=== PATIENT | female | born 1980 | race Caucasian/White ===

== ENCOUNTER 2020-03-19 10:15 | Observation (INO) | payer OTHER ==
[~2020-03-19] VITALS: Ht 177.8 cm; Wt 92.1 kg
== END 2020-03-19 11:50 | disposition home or self-care (01) ==
LOC: SPU 10:15
PROVIDERS: ADMIT Specialist; ATTEND Specialist
DX: Z34.83 Encounter for supervision of other normal pregnancy, third trimester (principal); Z3A.37 37 weeks gestation of pregnancy
CPT/HCPCS: G0378

== ENCOUNTER 2020-03-27 11:46 | Observation (INO) | payer OTHER, SELFPAY | END 2020-03-27 12:30 | disposition home or self-care (01) | LOC: SPU 11:46 | PROVIDERS: ADMIT Specialist; ATTEND Specialist | DX: Z03.818 Encounter for observation for suspected exposure to other biological agents ruled out (principal); O62.9 Abnormality of forces of labor, unspecified; Z3A.38 38 weeks gestation of pregnancy | CPT/HCPCS: G0378; U0003 ==

== ENCOUNTER 2020-03-28 07:44 | Inpatient (IN) | payer OTHER ==
[~2020-03-28] VITALS: Ht 177.8 cm; Wt 92.1 kg
[2020-03-28] MEDS ORDERED: LR 1,000 ML IV ONE (21:18)
[2020-03-28 21:27] VITALS: BP_SYST 123
[2020-03-28] MEDS ORDERED: TERBUTALINE SULFATE 1 MG/ML VIAL SUBCUT ONE (21:30)
[2020-03-28] MEDS ORDERED: DINOPROSTONE 10 MG SUPP VG ONE (21:30)
[2020-03-28 23:24] LABS: BASOPHILS % (AUTO) 0.4 % (0.0-2.0); EOSINOPHILS # (AUTO) 0.1 K/uL (0.0-0.4); EOSINOPHILS % (AUTO) 0.9 % (0.0-4.0); HEMATOCRIT 34.7 % (36-48); LYMPHOCYTES # (AUTO) 1.9 K/uL (1.0-5.5); LYMPHOCYTES % (AUTO) 19.2 % (20.5-51.5); MEAN CORPUSCULAR HEMOGLOBIN 33 pg (27-31); MEAN CORPUSCULAR HGB CONC 35 % (32-36); MEAN CORPUSCULAR VOLUME 95 fL (79.0-98.0); MONOCYTES # (AUTO) 0.7 K/uL (0.0-1.0); MONOCYTES % (AUTO) 6.8 % (1.7-9.3); NEUTROPHILS # (AUTO) 7.1 K/uL (1.8-7.7); NEUTROPHILS % (AUTO) 72.7 % (40.0-70.0); PLATELET COUNT (AUTO) 266 K/uL (130-430); RED BLOOD CELL COUNT(AUTO) 3.66 MIL/uL (4.2-6.2); RED CELL DISTRIBUTION WIDTH 12.2 % (9.0-15.0); WHITE BLOOD COUNT (AUTO) 9.8 K/uL (4.8-10.8)
[2020-03-28] MEDS ORDERED: MORPHINE SULFATE 10 MG/ML VIAL IVP PRN (23:45)
[2020-03-29] MEDS: LR 1,000 ML IV SCH ×4 (02:40→15:45)
[2020-03-29] MEDS ORDERED: fentaNYL CITRATE/PF 100 MCG/2 ML AMP ONE (05:03)
[2020-03-29] MEDS ORDERED: ROPIVACAINE HCL/PF 0.2% 200 ML ONE (05:04)
[2020-03-29] MEDS ORDERED: LR 500 ML IV ONE (06:07)
[2020-03-29] MEDS ORDERED: ePHEDrine sulfate 50 MG/ML VIAL IVP PRN (06:15)
[2020-03-29] MEDS ORDERED: FENT2mCg/mL-ROPIVA0.2%/NS EPID 200 ML EP SCH (06:15)
[2020-03-29] MEDS ORDERED: BUPIVACAINE /PF 0.25% 30 ML VIAL INJ ONE (08:47)
[2020-03-29] MEDS ORDERED: OXYTOCIN/0.9 % SODIUM CHLORIDE 1,000 ML IV SCH ×2 (09:00→20:10)
[2020-03-29] MEDS ORDERED: OXYTOCIN/0.9 % SODIUM CHLORIDE 1,000 ML IV ONE ×2 (09:35→20:10)
[2020-03-29] MEDS ORDERED: FENT2mCg/mL-ROPIVA0.2%/NS EPID 150 ML EP SCH (17:45)
[2020-03-29] MEDS ORDERED: METHYLERGONOVINE MALEATE 0.2 MG TABLET PO PRN (20:15)
[2020-03-29] MEDS ORDERED: OXYCODONE/ACETAMINOPHEN 5-325 TABLET PO PRN ×2 (20:15)
[2020-03-29] MEDS ORDERED: HYDROcodone/ACETAMIN 5-325 MG TAB (NORCO/ VICODIN) PO PRN (20:15)
[2020-03-29] MEDS ORDERED: ANUSOL 1 EA SUPP.RECT (PREPARATION H) RC PRN (20:15)
[2020-03-29] MEDS ORDERED: LANOLIN 7 GM OINT. TP PRN (20:15)
[2020-03-29] MEDS ORDERED: DERMOPLAST SPRAY TP PRN (20:15)
[2020-03-29] MEDS ORDERED: SENNOSIDES/DOCUSATE SODIUM 1 TAB TABLET(SENOKOT-S) PO PRN (20:15)
[2020-03-29] MEDS ORDERED: RHO(D) IMMUNE GLOBULIN/MALTOSE 1500 UNITS/1.3 ML (WINHRO) IM PRN (20:15)
[2020-03-29] MEDS ORDERED: DIPH-TET-PERTUS Vaccine 0.5 ML VIAL (ADACEL) I.M. PRN (20:15)
[2020-03-29] MEDS ORDERED: HYDROCORTISONE 0.5%, 28.35 GM TOPICAL CREAM TP PRN (20:15)
[2020-03-29] MEDS ORDERED: MEASLES,MUMPS&RUBELLA VACC/PF 12500 UNIT/0.5 ML VIAL SUBQ PRN (20:15)
[2020-03-29] MEDS ORDERED: WITCH HAZEL LEAF 1 MED.PAD MED.PAD TP PRN (20:15)
[2020-03-29] MEDS ORDERED: TEMAZEPAM 15 MG CAPSULE PO PRN (21:00)
[2020-03-29] MEDS: IBUPROFEN 600 MG TABLET PO SCH (23:21)
[2020-03-29] MEDS: DOCUSATE SODIUM 100 MG CAPSULE PO PRN (23:21)
[2020-03-30] MEDS: IBUPROFEN 600 MG TABLET PO SCH ×3 (05:43→17:47)
[2020-03-30 07:16] LABS: BASOPHILS % (AUTO) 0.4 % (0.0-2.0); EOSINOPHILS # (AUTO) 0.1 K/uL (0.0-0.4); EOSINOPHILS % (AUTO) 0.6 % (0.0-4.0); HEMATOCRIT 35.2 % (36-48); HEMOGLOBIN 11.9 g/dL (12.0-16.0); LYMPHOCYTES % (AUTO) 14.6 % (20.5-51.5); MEAN CORPUSCULAR HEMOGLOBIN 32 pg (27-31); MEAN CORPUSCULAR HGB CONC 34 % (32-36); MEAN CORPUSCULAR VOLUME 96 fL (79.0-98.0); MONOCYTES # (AUTO) 0.9 K/uL (0.0-1.0); MONOCYTES % (AUTO) 6.6 % (1.7-9.3); NEUTROPHILS # (AUTO) 10.4 K/uL (1.8-7.7); NEUTROPHILS % (AUTO) 77.8 % (40.0-70.0); PLATELET COUNT (AUTO) 278 K/uL (130-430); RED BLOOD CELL COUNT(AUTO) 3.68 MIL/uL (4.2-6.2); RED CELL DISTRIBUTION WIDTH 12.3 % (9.0-15.0)
[2020-03-30 07:39] LABS: WHITE BLOOD COUNT (AUTO) 13.4 K/uL (4.8-10.8)
[2020-03-30] MEDS ORDERED: LIDOCAINE PF 1% 30ML(POUR BTL) INJ ONE (13:53)
[2020-03-30] MEDS ORDERED: MINERAL OIL 30 ML UDC PO ONE (13:53)
[2020-03-31] MEDS: IBUPROFEN 600 MG TABLET PO SCH ×5 (00:04→18:11)
[2020-03-31] MEDS: DOCUSATE SODIUM 100 MG CAPSULE PO PRN ×2 (00:06→06:03)
== END 2020-03-31 18:45 | disposition home or self-care (01) | DRG 807 ==
LOC: SPU 21:10
PROVIDERS: ADMIT Specialist; ATTEND Specialist
PROC: 10E0XZZ Delivery of Products of Conception, External Approach (ICD-10-PCS; principal; 2020-03-29)
PROC: 0KQM0ZZ Repair Perineum Muscle, Open Approach (ICD-10-PCS; 2020-03-29)
PROC: 3E0P7VZ Introduction of Hormone into Female Reproductive, Via Natural or Artificial Opening (ICD-10-PCS; 2020-03-29)
PROC: 3E0R3BZ Introduction of Anesthetic Agent into Spinal Canal, Percutaneous Approach (ICD-10-PCS; 2020-03-29)
PROC: 00HU33Z Insertion of Infusion Device into Spinal Canal, Percutaneous Approach (ICD-10-PCS; 2020-03-29)
DX: O36.5930 Maternal care for other known or suspected poor fetal growth, third trimester, not applicable or unspecified (principal); Z37.0 Single live birth; O69.81X0 Labor and delivery complicated by cord around neck, without compression, not applicable or unspecified; O70.1 Second degree perineal laceration during delivery; Z3A.38 38 weeks gestation of pregnancy; O09.523 Supervision of elderly multigravida, third trimester
CPT/HCPCS: 36415; 81002-TC; 85025; 86592; 86886; 86900; 86901; 94760; J2001; J2270; J2590; J3010; J3490